=== PATIENT | male | born 1980 | race Caucasian/White ===

== ENCOUNTER 2019-12-21 10:03 | Outpatient (CLI) | payer BC, SELFPAY ==
--- NOTE | ~2019-12-21 | XR_ITS ---
EXAMINATION: XR chest 2V 12/21/2019 10:13 INDICATION: Chest tightness PROCEDURE: 2 view chest COMPARISON: 01/09/2017 FINDINGS: The lungs are clear. The cardiomediastinal silhouette is within normal limits. There are no pleural effusions. There is no pneumothorax suspected. IMPRESSION: 1: NO ACUTE CARDIOPULMONARY DISEASE. Reviewed, dictated and finalized at location A.
== END 2019-12-21 10:04 | disposition home or self-care (01) ==
PROVIDERS: PCP Family Medicine; Visit Provider Nurse Practitioner Family
DX: R07.89 Other chest pain (principal); R06.02 Shortness of breath; E78.00 Pure hypercholesterolemia, unspecified
CPT/HCPCS: 71046

== ENCOUNTER 2021-09-08 07:38 | Outpatient (CLI) | payer BC, SELFPAY ==
[2021-09-08 08:27] LABS: Creatine Kinase 177 U/L (55-170)
== END 2021-09-08 07:39 | disposition home or self-care (01) ==
LOC: ANHLAB 07:41
PROVIDERS: PCP Family Medicine; Visit Provider Nurse Practitioner Family
DX: R74.8 Abnormal levels of other serum enzymes (principal)
CPT/HCPCS: 36415; 82550

== ENCOUNTER → 2022-07-17 08:10 | Outpatient (CLI) | payer BC, SELFPAY ==
--- NOTE | ~2022-07-17 | XR_ITS ---
Lumbosacral Spine: AP, oblique, and lateral views, with neutral, flexion, and extension positioning. Clinical History: Pain Findings: The normal lordotic curve is maintained. No instability evident on flexion or extension vie ws. No fracture or subluxation evident. The intervertebral disc spaces are preserved. The sacroiliac joints are normally outlined. Impression: No significant abnormality. Reviewed, dictated and finalized at location . NT TRAINER Impression: No significant abnormality.
== END ==
PROVIDERS: PCP Family Medicine; Visit Provider Family Medicine
DX: M51.36 Other intervertebral disc degeneration, lumbar region (principal)
CPT/HCPCS: 72114

== ENCOUNTER 2025-05-30 08:43 | Outpatient (CLI) | payer BC, SELFPAY ==
--- NOTE | ~2025-05-30 | XR_ITS ---
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 Findings: There is a remote appearing corticated fracture of the distal aspect of the scaphoid, no acute fracture is identified. No significant degenerative changes. There is a metallic radiopaque foreign body within the soft tissues adjacent to the proximal first metacarpal measuring 2 x 3 mm. Impression: No acute fracture or malalignment. Reviewed, dictated and finalized at location P. UCTION MACHINE SHOP SUPERVISOR Impression: No acute fracture or malalignment.
--- NOTE | ~2025-05-30 | XR_ITS ---
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 Findings: No acute fracture or malalignment. No significant degenerative changes. There is metallic radiopaque foreign body debris demonstrated within the soft tissues adjacent to the proximal first metacarpal. Impression: No acute fracture or malalignment. Reviewed, dictated and finalized at location P. INSERTER OPERATOR Impression: No acute fracture or malalignment.
== END 2025-05-30 08:44 | disposition home or self-care (01) ==
LOC: MICIMG 08:45
PROVIDERS: PCP Family Medicine; Visit Provider Nurse Practitioner Family
DX: M25.531 Pain in right wrist (principal); M79.641 Pain in right hand
CPT/HCPCS: 73110; 73120